=== PATIENT | female | born 1950 | race Caucasian/White ===

== ENCOUNTER 2018-03-15 22:37 | Inpatient (IN) | payer MEDICAID ==
[2018-03-15 23:31] LABS: ADD MAN DIFF? NO
[2018-03-15 23:36] LABS: WHITE BLOOD COUNT 6.8 10^3/ul (4.8-10.8)
[2018-03-15 23:36] LABS: BASOPHILS % 0.3 % (0.0-2.0); EOSINOPHILS # 0.1 10^3/ul (0.0-0.5); EOSINOPHILS % 1.8 % (0.0-7.0); HEMATOCRIT 39.4 % (37.0-47.0); LYMPHOCYTES # 2.2 10^3/ul (0.8-2.9); MEAN CORPUSCULAR HEMOGLOBIN 29.1 pg (29.0-33.0); MEAN CORPUSCULAR VOLUME 88.3 fl (82.0-101.0); MONOCYTE # 0.8 10^3/ul (0.3-0.9); MONOCYTES % 11.2 % (0.0-11.0); NEUTROPHIL # 3.7 10^3/ul (1.6-7.5); NEUTROPHILS % 54.4 % (39.0-77.0); PLATELET COUNT 201 10^3/UL (140-415); RED BLOOD COUNT 4.46 10^6/ul (4.20-5.40); RED CELL DISTRIBUTION WIDTH 13.2 % (11.5-14.5)
[2018-03-15 23:50] LABS: ANION GAP 11 (8-16); BLOOD UREA NITROGEN 12 mg/dl (7-20); CALCIUM 9.4 mg/dl (8.4-10.2); CARBON DIOXIDE 29 mmol/L (21-31); CHLORIDE 103 mmol/L (97-110); CREATININE 0.68 mg/dl (0.44-1.00); GLUCOSE 123 mg/dl (70-220); SODIUM 140 mmol/L (135-144)
[2018-03-15] MEDS: LABETALOL HCL 20MG INJ IV (23:54)
[2018-03-16 00:02] LABS: B-TYPE NATRIURETIC PEPTIDE 156 PG/ML (0-125); TROPONIN-I < 0.010 ng/ml (0.000-0.120)
[2018-03-16] MEDS ORDERED: FUROSEMIDE 20 MG INJ IV (01:00)
[2018-03-16] MEDS: AMLODIPINE 10 MG TAB PO ×2 (01:44→09:30)
[2018-03-16] MEDS: ONDANSETRON 4 MG INJ IV (01:44)
[2018-03-16] MEDS: POTASSIUM CHLORIDE (SR) 20 MEQ TAB PO (01:44)
[2018-03-16] MEDS: LABETALOL HCL 20MG INJ IV (02:47)
[2018-03-16] MEDS ORDERED: ALBUTEROL/IPRATROPIUM (NEB) 3 ML AMP HHN (04:00)
[2018-03-16] MEDS ORDERED: NACL 0.9% 3 ML SYG IV (04:00)
[2018-03-16] MEDS ORDERED: hydrALAzine 20 MG INJ IV (04:00)
[2018-03-16] MEDS ORDERED: ONDANSETRON 4 MG INJ IV (04:00)
[2018-03-16] MEDS: LACTATED RINGER'S 1,000 ML IV (04:16)
[2018-03-16] MEDS: NICARDipine HCL 30 MG CAPSULE PO (04:19)
[2018-03-16 05:56] LABS: ADD MAN DIFF? NO
[2018-03-16 06:03] LABS: WHITE BLOOD COUNT 7.5 10^3/ul (4.8-10.8)
[2018-03-16 06:03] LABS: BASOPHILS % 0.4 % (0.0-2.0); EOSINOPHILS # 0.1 10^3/ul (0.0-0.5); EOSINOPHILS % 1.1 % (0.0-7.0); HEMATOCRIT 40.6 % (37.0-47.0); HEMOGLOBIN 13.7 g/dl (12.0-16.0); LYMPHOCYTES # 2.1 10^3/ul (0.8-2.9); LYMPHOCYTES % 28.3 % (15.0-51.0); MEAN CORPUSCULAR HEMOGLOBIN 29.9 pg (29.0-33.0); MEAN CORPUSCULAR HGB CONC 33.7 g/dl (32.0-37.0); MEAN CORPUSCULAR VOLUME 88.6 fl (82.0-101.0); MEAN PLATELET VOLUME 10.4 fl (7.4-10.4); MONOCYTE # 0.7 10^3/ul (0.3-0.9); MONOCYTES % 9.3 % (0.0-11.0); NEUTROPHIL # 4.5 10^3/ul (1.6-7.5); NEUTROPHILS % 60.6 % (39.0-77.0); PLATELET COUNT 197 10^3/UL (140-415); RED BLOOD COUNT 4.58 10^6/ul (4.20-5.40); RED CELL DISTRIBUTION WIDTH 13.4 % (11.5-14.5)
[2018-03-16 06:35] LABS: ALANINE AMINOTRANSFERASE 22 IU/L (13-69); ALBUMIN 4.4 g/dl (3.3-4.9); ALBUMIN/GLOBULIN RATIO 1.25; ALKALINE PHOSPHATASE 94 IU/L (42-121); ANION GAP 16 (8-16); ASPARTATE AMINO TRANSFERASE 30 IU/L (15-46); BILIRUBIN,INDIRECT 0.6 mg/dl (0-1.1); BILIRUBIN,TOTAL 0.6 mg/dl (0.2-1.3); BLOOD UREA NITROGEN 11 mg/dl (7-20); CALCIUM 9.4 mg/dl (8.4-10.2); CARBON DIOXIDE 26 mmol/L (21-31); CHLORIDE 108 mmol/L (97-110); CHOL/HDL RATIO 4.7 RATIO; CHOLESTEROL 217 mg/dl (100-200); CREATININE 0.66 mg/dl (0.44-1.00); GLUCOSE 120 mg/dl (70-220); HDL CHOLESTEROL 46 mg/dl (33-92); LDL CHOLESTEROL,CALCULATED 142 mg/dl; POTASSIUM 4.2 mmol/L (3.5-5.1); SODIUM 146 mmol/L (135-144); TOTAL PROTEIN 7.9 g/dl (6.1-8.1); TRIGLYCERIDES 146 mg/dl (0-149)
[2018-03-16 07:33] LABS: THYROID STIMULATING HORMONE 0.702 MIU/L (0.465-4.680)
[2018-03-16] MEDS: LISINOPRIL 20 MG TAB PO (09:30)
[2018-03-16 15:32] LABS: MAGNESIUM 2.1 mg/dl (1.7-2.5)
[2018-03-16 17:40] LABS: TROPONIN-I < 0.010 ng/ml (0.000-0.120)
[2018-03-16] MEDS: PANTOPRAZOLE (EC) 40 MG TAB PO (17:43)
[2018-03-16] MEDS: ACETAMINOPHEN 325 MG TAB PO (18:36)
[2018-03-17 05:52] LABS: ADD MAN DIFF? NO
[2018-03-17 05:54] LABS: WHITE BLOOD COUNT 6.9 10^3/ul (4.8-10.8)
[2018-03-17 05:54] LABS: BASOPHILS % 0.6 % (0.0-2.0); EOSINOPHILS # 0.2 10^3/ul (0.0-0.5); EOSINOPHILS % 2.5 % (0.0-7.0); HEMOGLOBIN 14.4 g/dl (12.0-16.0); LYMPHOCYTES % 29.3 % (15.0-51.0); MEAN CORPUSCULAR HEMOGLOBIN 29.8 pg (29.0-33.0); MEAN CORPUSCULAR HGB CONC 32.7 g/dl (32.0-37.0); MEAN CORPUSCULAR VOLUME 91.1 fl (82.0-101.0); MEAN PLATELET VOLUME 10.3 fl (7.4-10.4); MONOCYTE # 0.7 10^3/ul (0.3-0.9); MONOCYTES % 9.5 % (0.0-11.0); NEUTROPHILS % 57.7 % (39.0-77.0); PLATELET COUNT 242 10^3/UL (140-415); RED BLOOD COUNT 4.83 10^6/ul (4.20-5.40); RED CELL DISTRIBUTION WIDTH 13.8 % (11.5-14.5)
[2018-03-17 06:33] LABS: ANION GAP 16 (8-16); BLOOD UREA NITROGEN 20 mg/dl (7-20); CARBON DIOXIDE 26 mmol/L (21-31); CHLORIDE 103 mmol/L (97-110); CREATININE 0.87 mg/dl (0.44-1.00); GLUCOSE 116 mg/dl (70-220); MAGNESIUM 2.1 mg/dl (1.7-2.5); POTASSIUM 4.4 mmol/L (3.5-5.1); SODIUM 141 mmol/L (135-144)
[2018-03-17] MEDS: AMLODIPINE 10 MG TAB PO (08:19)
[2018-03-17] MEDS: LISINOPRIL 20 MG TAB PO (08:19)
[2018-03-17] MEDS: LEVOFLOXACIN 500 MG TAB PO (12:16)
[2018-03-18 06:00] LABS: ADD MAN DIFF? NO
[2018-03-18 06:04] LABS: WHITE BLOOD COUNT 7.4 10^3/ul (4.8-10.8)
[2018-03-18 06:04] LABS: BASOPHILS % 0.4 % (0.0-2.0); EOSINOPHILS # 0.2 10^3/ul (0.0-0.5); EOSINOPHILS % 2.2 % (0.0-7.0); HEMATOCRIT 42.6 % (37.0-47.0); HEMOGLOBIN 14.1 g/dl (12.0-16.0); LYMPHOCYTES # 1.8 10^3/ul (0.8-2.9); LYMPHOCYTES % 24.7 % (15.0-51.0); MEAN CORPUSCULAR HEMOGLOBIN 30.1 pg (29.0-33.0); MEAN CORPUSCULAR HGB CONC 33.1 g/dl (32.0-37.0); MEAN PLATELET VOLUME 10.2 fl (7.4-10.4); MONOCYTE # 0.7 10^3/ul (0.3-0.9); MONOCYTES % 9.9 % (0.0-11.0); NEUTROPHIL # 4.6 10^3/ul (1.6-7.5); NEUTROPHILS % 62.4 % (39.0-77.0); PLATELET COUNT 239 10^3/UL (140-415); RED BLOOD COUNT 4.68 10^6/ul (4.20-5.40); RED CELL DISTRIBUTION WIDTH 13.7 % (11.5-14.5)
[2018-03-18 06:23] LABS: ANION GAP 13 (8-16); BLOOD UREA NITROGEN 29 mg/dl (7-20); CALCIUM 9.5 mg/dl (8.4-10.2); CARBON DIOXIDE 24 mmol/L (21-31); CHLORIDE 106 mmol/L (97-110); CREATININE 0.97 mg/dl (0.44-1.00); GLUCOSE 116 mg/dl (70-220); POTASSIUM 4.3 mmol/L (3.5-5.1); SODIUM 139 mmol/L (135-144)
[2018-03-18] MEDS: LISINOPRIL 20 MG TAB PO (08:14)
[2018-03-18] MEDS: LEVOFLOXACIN 500 MG TAB PO (08:14)
[2018-03-18] MEDS: AMLODIPINE 10 MG TAB PO (08:14)
== END 2018-03-18 14:27 | disposition home or self-care (01) | DRG 305 ==
LOC: E/R 22:37 → ICU 03-16 03:24 → 6WM 03-16 17:10
PROVIDERS: Internal Medicine
DX: I16.0 Hypertensive urgency (principal); E87.6 Hypokalemia; R42 Dizziness and giddiness
CPT/HCPCS: 36415; 71045; 71250; 76536; 80048; 80053; 80061; 83036; 83735; 83880; 84100; 84443; 84484; 85025; 93005; 93306; 96374; 96375; 96376; 99285-25